=== PATIENT | male | born 1980 | race Two or more races ===

== ENCOUNTER 2024-12-30 09:00 | Day surgery (SDC) | payer MEDICAID, SELFPAY ==
[2024-12-29 08:28] VITALS: BMI 27.7
[2024-12-29 10:19] LABS: Basophils % (Auto) 0 % (0-2.5); Eosinophils # (Auto) 0.1 Thou/mm3 (0.0-0.5); Eosinophils % (Auto) 2 % (0-10); Hematocrit 44.2 % (41.0-53.0); Hemoglobin 15.4 g/dL (13.5-16.0); Immature Granulocytes % (Auto) 0 % (0-0); Immature Granulocytes Auto 0.02 Thou/mm3 (0.00-0.00); Lymphocytes # (Auto) 2.4 Thou/mm3 (1.0-4.8); Lymphocytes % (Auto) 33 % (10-50); Mean Corpuscular HGB Conc 34.8 g/dl (31.0-37.0); Mean Corpuscular Hemoglobin 30.3 pg (25.0-35.0); Mean Corpuscular Volume 87 fL (80-100); Monocytes # (Auto) 0.7 Thou/mm3 (0.0-0.8); Monocytes % (Auto) 9 % (0-12); Neutrophils # (Auto) 4.1 Thou/mm3 (1.8-7.7); Neutrophils % (Auto) 56 % (37-80); Nucleated Red Blood Cell % 0 /100 WBC (0); Platelet Count 282 Thou/mm3 (140-440); RDW Standard Deviation 41.1 fL (35.1-43.9); Red Blood Count 5.09 Miln/mm3 (4.50-5.90); White Blood Count 7.3 Thou/mm3 (3.8-10.6)
[2024-12-29 10:25] LABS: Partial Thromboplastin Time 34.7 Seconds (22.0-36.0); Prothrombin Time 10.7 Seconds (9.0-12.2)
[2024-12-29 10:32] LABS: Alanine Aminotransferase 30 U/L (10-49); Albumin, Serum 4.5 gm/dL (3.5-5.0); Albumin/Globulin Ratio 1.5 (1.2-2.2); Alkaline Phosphatase 74 U/L (46-116); Anion Gap 10 (7-16); Aspartate Amino Transferase 28 U/L (0-34); BUN/Creatinine Ratio 16 Ratio (12-20); Bilirubin,Total 0.5 mg/dL (0.3-1.2); Blood Urea Nitrogen 13 mg/dL (9-23); Calcium 9.1 mg/dL (8.3-10.6); Calcium (Corrected) 9.1 mg/dL (8.5-10.1); Carbon Dioxide 26.5 mMol/L (20.0-31.0); Chloride 103 mMol/L (98-107); Creatinine (Component) 0.8 mg/dL (0.6-1.3); Estimated Creatinine Clearance 119.6 mL/min (>60); Glucose 102 mg/dL (74-106); Osmolality,Calculated 277 (275-295); Potassium 4.2 mMol/L (3.4-5.1); Sodium 139 mMol/L (136-145); Total Protein 7.5 gm/dL (5.7-8.2); eGFR > 60 See Note
--- NOTE | 2024-12-29 13:53 | SUR.PREOP ---
Pt notified to come in at 0900 tomorrow for surgery.
[2024-12-30] VITALS (8 sets, daily range): BP systolic 103–122; BP diastolic 68–85; PULSE 70–83; RESP 14–20; TEMP 36.1–36.6; O2SAT 95–100; BMI 27.6
--- NOTE | 2024-12-30 12:25 | PD.SUROPNT ---
Date of Procedure 12/30/24 Pre Op Diagnosis Symptomatic umbilical hernia Post Op Diagnosis Same Procedure Repair of the umbilical hernia with primary closure Findings Patient is found to have a large sac containing omentum and preperitoneal fat. After this was reduced the defect was narrow and therefore I did a primary approximation Procedure Description After the patient was brought to the operating room and due to clearances was given. The abdomen was prepped with ChloraPrep solution and draped in a sterile manner. Timeout is performed. Then I made a curved incision in the area below the umbilicus. Using Elmo retractors I dissected out the subcutaneous tissue and reach the sac. I opened the sac and was found to contain omentum. This was reduced. The edges of the sac could not be clearly defined but the defect was very small. There was fair amount of bleeding at the time of reduction but it was controlled with using 2 and 3-0 chromic suture ligatures. Then the defect was approximated with primary closure using interrupted 2-0 Prolene about 4 stitches. Then the subcutaneous tissue was closed with 3-0 chromic and skin was closed with 4-0 Monocryl after injecting Marcaine for analgesia. Dressing was applied with Adaptic and 4 x 4 gauze and patient tolerated the procedure well Anesthesia GETA Pathology / specimen None IVF Infused 600 Estimated Blood Loss 20 Surgeon Ron Crisostomo MD Surgical Staff Operation Date: 12/30/24 12:00 Case Staff Anesthesiologist: Endy Cid RN First Assistant: Taty Hernandez
--- NOTE | 2024-12-30 12:37 | SUR.PHASEI ---
Pt arrived to PACU via gurney drowsy-responds to voice, breathing unlabored, dressing to abdomen clean, dry, and intact, report from Maik TEMPLE and Dr Cid
--- NOTE | 2024-12-30 12:54 | SUR.PHASEI ---
Pt resting in [facility] with eyes closed, breathing unlabored, dressing to abdomen clean, dry, and intact, report to Yamileth TEMPLE
--- NOTE | 2024-12-30 13:40 | SUR.PHASEII ---
1340: Pt. AAOx4, vitals stable, breathing unlabored, no complaint of pain or nausea, dressing to ABD CDI, no active bleed noted, pt. tolerated sips of water well, pt. ambulated to wheelchair with steady gait and no assist, no complications. Gave discharge instructions to the pt. and his ride using neon installer Syed LOREDO, both verbalized understanding and had no further questions. Pt. left with all personal belongings.
== END 2024-12-30 13:40 | disposition home or self-care (01) ==
PROVIDERS: Referring Provider Surgery; Visit Provider Surgery
PROC: (CPT 49591; principal; 2024-12-30 12:00)
DX: K42.9 Umbilical hernia without obstruction or gangrene (principal)
CPT/HCPCS: 49591; 36415; 80053; 85025; 85610; 85730; A4217; A4649; J1100; J1885; J2250; J2405; J2704; J3010; J3490